=== PATIENT | female | born 1975 | race Asian ===

== ENCOUNTER → 2022-09-24 | Outpatient (CLI) | payer OTHER ==
[2022-09-25 04:06] LABS: RUBELLA AB IGG-REFLAB 5.63 index (Immune >0.99); RUBEOLA (MEASLES) IGG >300.0 AU/mL (Immune >16.4)
== END | disposition home or self-care (01) ==
LOC: LABMN 09:49
PROVIDERS: ATTEND Internal Medicine
DX: Z02.1 Encounter for pre-employment examination (principal)
CPT/HCPCS: 86706; 86735; 86762; 86765; 86787

== ENCOUNTER 2023-09-15 14:07 | Emergency (ER) | payer OTHER ==
[~2023-09-15] VITALS: Ht 154.9 cm; Wt 54.5 kg
[2023-09-15 14:14] VITALS: TEMP 98
[2023-09-15 14:44] VITALS: BP 136/84; PULSE 88; RESP 16
[2023-09-15] MEDS: IBUPROFEN 400 MG TABLET PO ONE (15:13)
== END 2023-09-15 15:18 | disposition home or self-care (01) ==
LOC: EMS 14:07
DX: S09.93XA Unspecified injury of face, initial encounter (principal); Y04.0XXA Assault by unarmed brawl or fight, initial encounter; Y93.89 Activity, other specified; Y92.89 Other specified places as the place of occurrence of the external cause; Y99.8 Other external cause status
CPT/HCPCS: 99282; Z7502; Z7610